=== PATIENT | female | born 1950 | race Caucasian/White ===

== ENCOUNTER 2016-08-25 08:13 | Outpatient (CLI) | payer OTHER | END 2016-08-25 08:14 | disposition critical access hospital (66) | DX: H53.8 Other visual disturbances (principal) | CPT/HCPCS: A0425; A0429 ==

== ENCOUNTER 2016-08-25 08:47 | Emergency (ER) | payer OTHER ==
--- NOTE | 2016-08-25 08:57 | ED Physician Documentation ---
History of Present Illness - Stated complaint Stated Complaint: BLURRED VISION RESOLVED - Chief complaint Chief Complaint: Heent - Additonal information Additional information: hx from pt 66 female healthy episode of trouble with vision focus and feeling near syncopal this AM states she was watching TV, she had trouble focusing on the image, no field cut , no curtain, both eyes then feelt a but faint no CP or palp no diff speaking or hearing, no numbness or weakness sx lasted about a minute had another epsiode o near syncope a few weeks ago while visiting family in [place] - also no palp CP soa focal neuro, also brief and self limited Review of Systems Constitutional: denies: Fever, Chills Eyes: reports: Decreased vision. denies: Loss of vision, Photophobia Ears: denies: Loss of hearing Cardiac: denies: Chest pain / pressure, Palpitations Respiratory: denies: Dyspnea, Cough GI: denies: Abdominal Pain, Nausea, Vomiting Neurologic: reports: Near syncope. denies: Generalized weakness, Focal weakness , Numbness, Difficulty speaking, Syncope, Seizure, Confused, Altered mental status, Headache, Head injury, LOC Endocrine: denies: Easy bruising / bleeding Immunocompromised: denies: Immunocompromised PD PAST MEDICAL HISTORY - Present Medications Home Medications: Ambulatory Orders Medication Instructions Recorded Confirmed Acyclovir 08/25/16 Atenolol 08/25/16 - Allergies Allergies/Adverse Reactions: Allergies Allergy/AdvReac Type Severity Reaction Status Date / Time aspirin Allergy Emesis Verified 08/25/16 08:53 Sulfa (Sulfonamide Allergy Rash Verified 08/25/16 08:53 Antibiotics) PD ED PE NORMAL - Vitals Vital signs reviewed: Yes - General General: Alert and oriented X 3 - HEENT HEENT: PERRL, EOMI - Neck Neck: Supple, no meningeal sign - Cardiac Cardiac: RRR - Respiratory Respiratory: No respiratory distress, Clear bilaterally - Abdomen Abdomen: Soft, Non tender - Derm Derm: Normal color - Extremities Extremities: No deformity, Normal ROM s pain, No edema, No calf tenderness / cord - Neuro Neuro: Alert and oriented X 3, branding specialist 2-12 intact, No motor deficit, No sensory deficit, Normal speech Results - Vitals Vitals: Vital Signs - 24 hr 08/25/16 08/25/16 08:49 11:06 Temperature 36.6 C 36.5 C Heart Rate 80 73 Respiratory 20 11 L Rate Blood Pressure 175/99 H 132/85 H O2 Saturation 100 98 Oxygen O2 Source Room air - EKG (time done) 0858 Rate: Rate (enter#) (66) Rhythm: NSR Sutton: Normal Intervals: Normal CO Ischemia: Normal ST segments - Tele (time rhythm occurred) 1115 Telemetry / rhythm strip: NSR - Labs Labs: Laboratory Tests 08/25/16 08/25/16 09:13 09:13 WBC 4.6 L RBC 4.61 Hgb 14.3 Hct 42.7 MCV 92.6 MCH 31.0 MCHC 33.5 RDW 13.1 Plt Count 187 MPV 9.4 Neut # 2.8 Lymph # 1.3 L Kemper # 0.4 Eos # 0.1 Baso # 0.0 Absolute Nucleated RBC 0.00 Nucleated RBCs 0.0 Sodium 141 Potassium 3.8 Chloride 104 Carbon Dioxide 29 Anion Gap 8.0 BUN 22 H Creatinine 0.6 Estimated GFR (MDRD) 100 Glucose 107 H Calcium 9.2 - Rads (name of study) CTH Radiology: See rad report (no acute) carotid dopplers Radiology: See rad report PD MEDICAL DECISION MAKING - ED course ED course: hx more c/w near syncope sx were brief and and have resolved EKG tele NSR throughout nl CTH and dopplers nl labs will dc for now but feel pt should fup PMD for consideration of echo and event monitor Departure - Departure Disposition: 01 Home, Self Care Clinical Impression: Near syncope Condition: Good Instructions: ED Near Syncope Unkn Comments: All of your tests were reassuring - normal CT head, no blockages in your carotid arteries, normal heart rhythm and normal labs I am not certain what did cause your symptoms. but since you are feeling better and your work up so far is reassuring, I think it is safe for you to go home for today. But I do recommend that you follow up with your PMD for some further tests as an outpatient - such as an echocardiogram (ultrasound of your heart) and a wear at home heart monitor. Of course, please return if the symptoms re-occur or you have any other concerns Also please follow up with your PMD about your blood pressure - it was high today NIHSS - Time Time: 08:50 - Level of Consciousness Level of consciousness: (0) Alert, Keenly responsive LOC Questions: (0) Answers both Q's correct LOC Commands: (0) Performs both correctly - Gaze Best Gaze: (0) Normal - Visual Visual: (0) No loss - Facial Palsy Facial Palsy: (0) Normal, symmetrical movement - Motor Arms (both separate) Motor Arm (right): (0) No drift Motor Arm (left): (0) No drift - Motor Legs (both separate) Motor Leg (right): (0) No drift Motor Leg (left): (0) No drift - Limb Ataxia Limb Ataxia: (0) Absent - Sensory Sensory: (0) Normal - Best Language Best Language: (0) No aphasia - Dysarthria Dysarthria: (0) Normal - Extinction and Inattention (formally neg Extinction and inattention: (0) No abnormality - Total Score/Results Total Score/Result: 0
--- NOTE | 2016-08-25 09:19 | CT Preliminary Report ---
Exam: CT Head W/O IMPRESSION: Normal examination. No CVA or other demonstrated cause for visual disturbance. [facility] SITE ID: [id number]
--- NOTE | 2016-08-25 09:22 | CT Report ---
EXAM: CT HEAD WITHOUT CONTRAST EXAM DATE: 08/25/2016 09:10 AM. CLINICAL HISTORY: Vision changes now resolved in a 66-year-old male. COMPARISON: None. TECHNIQUE: Multiaxial CT images were obtained from the foramen magnum to the vertex. IV contrast: Non e. Reformats: Coronal. In accordance with CT protocol optimization, one or more of the following dose reduction techniques w ere utilized for this exam: automated exposure control, adjustment of mA and/or KV based on patient s ize, or use of iterative reconstructive technique. FINDINGS: Parenchyma: No intraparenchymal hemorrhage. No evidence of mass, midline shift, or CT findings of inf arction. Antonio-white differentiation is distinct. Extraaxial Spaces: Normal for age. No subdural or epidural collections identified. Ventricles: Normal in size and position. Sinuses: Imaged paranasal sinuses, orbits, and mastoids show no significant abnormality. Bones: No evidence of fracture or calvarial defect. Other: None. IMPRESSION: Normal examination. No CVA or other demonstrated cause for visual disturbance. [facility] Referring Provider Line: [phone] SITE ID: [id number]
[2016-08-25 09:32] LABS: BASOPHILS % (AUTO) 0.6 %; EOSINOPHILS # (AUTO) 0.1 10^3/uL (0.0-0.7); EOSINOPHILS % (AUTO) 1.4 %; HCT - HEMATOCRIT 42.7 % (37.0-47.0); HGB - HEMOGLOBIN 14.3 g/dL (12.0-16.0); LYMPHOCYTES # (AUTO) 1.3 10^3/uL (1.5-3.5); LYMPHOCYTES % (AUTO) 27.7 %; MEAN CORPUSCULAR HGB CONC 33.5 g/dL (32.0-36.0); MEAN CORPUSCULAR VOLUME 92.6 fL (81.0-99.0); MEAN PLATELET VOLUME 9.4 fL (7.9-10.8); MONOCYTES # (AUTO) 0.4 10^3/uL (0.0-1.0); MONOCYTES % (AUTO) 9.2 %; NEUTROPHILS # (AUTO) 2.8 10^3/uL (1.5-6.6); NEUTROPHILS % (AUTO) 61.1 %; RED BLOOD COUNT 4.61 10^6/uL (4.20-5.40); RED CELL DISTRIBUTION WIDTH 13.1 % (12.0-15.0); UNCORRECTED WHITE BLOOD COUNT 4.6 x10^3/uL; WHITE BLOOD COUNT 4.6 x10^3/uL (4.8-10.8)
[2016-08-25 09:40] LABS: CALCIUM 9.2 mg/dL (8.5-10.3); CREATININE 0.6 mg/dL (0.4-1.0); POTASSIUM 3.8 mmol/L (3.5-5.0)
--- NOTE | 2016-08-25 10:47 | Ultrasound Preliminary Report ---
Exam: US Carotid Doppler Complete IMPRESSION: No hemodynamically significant stenoses. Validated velocity measurements with angiographic measurements and velocity criteria are extrapolated from diameter data as defined by the Society of Radiologists in Ultrasound Consensus Conference Radi ology 2003; 229;340-346. [facility] SITE ID: [id number]
[2016-08-25 11:06] VITALS: BP 132/85
--- NOTE | 2016-08-25 11:08 | Ultrasound Report ---
EXAM: CAROTID DOPPLER ULTRASOUND EXAM DATE: 08/25/2016 10:08 AM. CLINICAL HISTORY: Blurred vision. TIA symptoms. COMPARISON: None. TECHNIQUE: Real-time sonographic vascular imaging was performed by the quality control checker through the caroti d arterial system with a linear transducer utilizing color-flow, Doppler flow and spectral analysis. Multiple guest services representative static images were saved for review. FINDINGS: Right: RCCA Prox: PSV 63 cm/sec. RCCA Dist: PSV 79 cm/sec, EDV 27 cm/sec. RECA: PSV 79 cm/sec. R Bulb: PSV 66 cm/sec, EDV 21 cm/sec, ICA/CCA ratio 0.83. NEDA Prox: PSV 48 cm/sec, EDV 21 cm/sec, ICA/CCA ratio 0.60. NEDA Mid: PSV 66 cm/sec, EDV 28 cm/sec, ICA/CCA ratio 0.83. NEDA Dist: PSV 85 cm/sec, EDV 35 cm/sec, ICA/CCA ratio 1.07. RVA: PSV 40 cm/sec. RVA flow direction: Antegrade. Left: LCCA Prox: PSV 76 cm/sec. LCCA Dist: PSV 89 cm/sec, EDV 31 cm/sec. LECA: PSV 77 cm/sec. L Bulb: PSV 62 cm/sec, EDV 21 cm/sec, ICA/CCA ratio 0.69. LICA Prox: PSV 91 cm/sec, EDV 34 cm/sec, ICA/CCA ratio 1.02. LICA Mid: PSV 96 cm/sec, EDV 53 cm/sec, ICA/CCA ratio 1.07. LICA Dist: PSV 82 cm/sec, EDV 29 cm/sec, ICA/CCA ratio 0.93. LVA: PSV 28 cm/sec. LVA flow direction: Antegrade. Other: None. IMPRESSION: No hemodynamically significant stenoses. Validated velocity measurements with angiographic measurements and velocity criteria are extrapolated from diameter data as defined by the Society of Radiologists in Ultrasound Consensus Conference Radi ology 2003; 229;340-346. [facility] Referring Provider Line: [phone] SITE ID: [id number]
== END 2016-08-25 11:32 | disposition home or self-care (01) ==
LOC: EDUNIT# → ED 08:47
DX: R55 Syncope and collapse (principal); H53.8 Other visual disturbances; R03.0 Elevated blood-pressure reading, without diagnosis of hypertension
CPT/HCPCS: 36415; 70450; 80048; 85025; 93005; 93010; 93880; 99284

== ENCOUNTER 2019-10-15 16:20 | Emergency (ER) | payer OTHER ==
[2019-10-15 16:31] VITALS: BP 149/108
--- NOTE | 2019-10-15 16:34 | ED Physician Documentation ---
PD HPI UPPER EXT INJURY - Stated complaint Stated Complaint: R ARM INJ - Chief complaint Chief Complaint: Trauma Ext - History obtained from History obtained from: Patient - History of Present Illness Location: Right, Forearm, Wrist Type of injury: Fall (from few steps up on step ladder, about 4 foot fall, as reached out while holding object on the ladder. Struck forearm on edge of ladder as she fell. With bruising and swelling that has increased over 2-3 hours since the injury.) Where injury occurred: Home Timing - onset: How many hours ago (3), Today Timing - duration: Hours (3) Timing - details: Abrupt onset, Still present (increased swelling and bruising over couple hours.) Worsened by: Moving (of the wrist. Finger movement does not hurt.), Palpating Associated symptoms: Swelling (at injury site, no swelling in fingers). 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 - Present Medications Home Medications: Ambulatory Orders Medication Instructions Recorded Confirmed Acyclovir 08/25/16 atenoloL [Atenolol] 08/25/16 - Allergies Allergies/Adverse Reactions: Allergies Allergy/AdvReac Type Severity Reaction Status Date / Time aspirin Allergy Emesis Verified 10/15/19 16:27 Sulfa (Sulfonamide Allergy Rash Verified 10/15/19 16:27 Antibiotics) - Social History Does the pt smoke?: No Smoking Status: Never smoker Does the pt drink ETOH?: Yes Does the pt have substance abuse?: No PD ED PE NORMAL - Vitals Vital signs reviewed: Yes - General General: Alert and oriented X 3, No acute distress, Well developed/nourished - HEENT HEENT: Atraumatic - Neck Neck: Supple, no meningeal sign, No bony TTP, No adenopathy - Respiratory Respiratory: Clear bilaterally, Other (no chestwall tenderness) - Back Back: No spinal TTP - Derm Derm: Normal color, Warm and dry - Extremities Extremities: Other (The right volar distal forearm to the proximal wrist area shows swelling business and tenderness. It does feel firm in the area with local tenderness. She has pulses palpable at the wrist. There is good color cap refill, sensation in the fingers. No edema in fingers. finger movement without pain) - Neuro Neuro: Alert and oriented X 3, No motor deficit, No sensory deficit, Normal speech Results - Vitals Vitals: Vital Signs - 24 hr 10/15/19 16:27 Temperature 37.1 C Heart Rate 103 H Respiratory 18 Rate Blood Pressure 149/108 H O2 Saturation 100 Oxygen O2 Source Room air - Rads (name of study) right wrist Radiology: Prelim report reviewed (no fractures), See rad report PD MEDICAL DECISION MAKING - ED course Complexity details: reviewed results (no fractures), re-evaluated patient (no symptoms nor findings of compartment syndrome.), considered differential, d/w patient Departure - Departure Disposition: 01 Home, Self Care Clinical Impression: Fall from ladder Qualifiers: Encounter type: initial encounter Qualified Code(s): W11.XXXA - Fall on and from ladder, initial encounter Forearm contusion Qualifiers: Encounter type: initial encounter Laterality: right Qualified Code(s): S50.11XA - Contusion of right forearm, initial encounter Condition: Stable Record reviewed to determine appropriate education?: Yes Instructions: ED Hematoma Comments: Use the wrist splint to protect motion at the wrist and reduce the discomfort. Use the sling to help elevate the forearm to also help reduce swelling. Some cool towels or ice to the area periodically to reduce swelling as well. The hematoma in the tissue should decrease swelling a bit tonight and tomorrow. It will then likely take a week or more for the swelling to go down. Meanwhile the bruising colors will change from purple to green to yellow. The area of the bruising will expand as well as the blood squishes to the nearby tissue. Be watchful of the symptoms through the fingers and hand that we talked about including significant pain with movement, discoloration of purple or white or swelling of the fingers to suggest too much pressure in the forearm. Tylenol ibuprofen as needed for pains. Discharge Date/Time: 10/15/19 17:32
--- NOTE | 2019-10-15 17:46 | XRAY Report ---
PROCEDURE: Wrist 4 View RT INDICATIONS: fall from stepladder FOOSH TECHNIQUE: 4 views of the wrist were acquired. COMPARISON: X-ray forearm 10/15/2019 FINDINGS: Bones: No fractures or dislocations. No suspicious bony lesions. Moderate first CMC degenerative n arrowing is present. Scaphoid view: No visualized scaphoid fracture. Soft tissues: No suspicious soft tissue calcifications. IMPRESSION: No visualized acute fracture or dislocation. However, occult injury cannot be excluded. Recommend ashlyn rt interval imaging follow-up in 7-10 days as clinically indicated for additional evaluation. Reviewed by: Jaida Martines MD on 10/15/2019 5:44 PM PDT Approved by: Jaida Martines MD on 10/15/2019 5:44 PM PDT Station ID: [id number]
--- NOTE | 2019-10-15 17:46 | XRAY Report ---
PROCEDURE: Forearm RT INDICATIONS: FALL FROM STEPLADDER TECHNIQUE: 2 views of the forearm were acquired. COMPARISON: X-ray wrist 10/15/2019 FINDINGS: Bones: No fractures or dislocations. No suspicious bony lesions. Moderate first CMC degenerative n arrowing Soft tissues: No suspicious soft tissue calcifications or masses. IMPRESSION: No visualized acute fracture or dislocation. However, occult injury cannot be excluded. Recommend ashlyn rt interval imaging follow-up in 7-10 days as clinically indicated for additional evaluation. Reviewed by: Jaida Martines MD on 10/15/2019 5:45 PM PDT Approved by: Jaida Martines MD on 10/15/2019 5:45 PM PDT Station ID: [id number]
== END 2019-10-15 17:32 | disposition home or self-care (01) ==
LOC: ED 16:20
DX: S50.11XA Contusion of right forearm, initial encounter (principal); W11.XXXA Fall on and from ladder, initial encounter
CPT/HCPCS: 99282; 99284